=== PATIENT | male | born 1945 | race Caucasian/White ===

== ENCOUNTER → 2017-09-16 | Day surgery (SDC) | payer OTHER ==
[~2017-09-16] MED LIST: IOPAMIDOL (ISOVUE-300) 100 ML BTL ONE; LR 1,000 ML IV ONE; ONDANSETRON 4 MG/2 ML VIAL IVP PRN; OXYCODONE/APAP 5/325 TAB PO PRN; PROPOFOL 200 MG/20 ML VIAL ONE; ROCURONIUM 50 MG/5 ML VIAL ONE; fentaNYL 100 MCG/2 ML INJ ONE
[2017-09-16 12:11] LABS: PLATELET COUNT 275 10^3/uL (150-400)
[2017-09-16 12:22] VITALS: BP 162/80
--- NOTE | 2017-09-16 12:46 | PDANEPAE ---
ANE History of Present Illness h/o CVA ANE Past Medical History - Cardiovascular History Hx Hypertension: Yes Hx Arrhythmias: No Hx Chest Pain: No Hx Coronary Artery / Peripheral Vascular Disease: No Hx CHF / Valvular Disease: No Hx Palpitations: No - Pulmonary History Hx COPD: No Hx Asthma/Reactive Airway Disease: No Hx Recent Upper Respiratory Infection: No Hx Oxygen in Use at Home: No Hx Sleep Apnea: Yes Sleep Apnea Screening Result - Last Documented: Positive - Neurologic History Hx Cerebrovascular Accident: Yes Hx Seizures: No Hx Dementia: Yes - Endocrine History Hx Diabetes: Yes - Renal History Hx Renal Disorders: No - Liver History Hx Hepatic Disorders: No - Neurological & Psychiatric Hx Hx Neurological and Psychiatric Disorders: No - Cancer History Hx Cancer: Yes 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 - Congenital Disorder History Hx 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 - GI History Hx Gastrointestinal Disorders: No - Other Health History Other Health History: Bilat cataract surgery - Chronic Pain History Chronic Pain: No ANE Review of Systems Review of Systems: - Exercise capacity METS (RN): 5 METS ANE Patient History - Allergies Allergies/Adverse Reactions: No Known Allergies Allergy (Unverified 09/10/17 13:32) - Home Medications Home Medications: Atorvastatin Calcium 40 mg PO DAILY 09/10/17 [Last Taken 09/15/17] Lantus 35 units SQ 09/10/17 [Last Taken 09/15/17] Losartan Potassium 50 mg PO DAILY 09/10/17 [Last Taken 09/15/17] Metformin 1000 mg 500 mg PO BID 09/10/17 [Last Taken 09/15/17] Metoprolol Tartrate 25 mg PO BID 09/10/17 [Last Taken 09/15/17] Plavix 75 mg PO DAILY 09/10/17 [Last Taken 09/15/17] - Smoking Hx Smoking Status: Former smoker - Family Anes Hx Family Hx Anesthesia Complications: None known ANE Labs/Vital Signs - Labs Result Diagrams: 09/16/17 11:53 09/16/17 11:53 - Vital Signs Blood Pressure: 162/80 Heart Rate: 57 Respiratory Rate: 16 O2 Sat (%): 92 Height: 177.8 cm Weight: 95.254 kg ANE Physical Exam - Airway Neck exam: FROM Mallampati Score: Class 2 Mouth exam: dentures - Pulmonary Pulmonary: no respiratory distress - Cardiovascular Cardiovascular: regular rate and rhythym - ASA Status ASA Status: III ANE Anesthesia Plan Total IV Anesthesia: Yes
--- NOTE | 2017-09-16 13:27 | PDHPUP ---
History & Physical Update H&P update statement: This history and physical update is based on an assessment of the patient which was completed after admission or registration (within 24 hours), but prior to the surgery/procedure. H&P update: H&P reviewed & patient examined, changes noted H&P changes: no significant change. I reviewed the pertinent history and medications with the patient from note dated 07/13/17. He had previous occipital strokes. He has not had new events since starting on ASA/plavix. He has vertebrobasilar stenosis on CTA. His PMH, FH, SH, allergies, and meds have not changed. PE: AAOx3, VF constricted bilaterally, facial function normal, PERRL. strength full in all limbs, sensation normal
--- NOTE | 2017-09-16 15:02 | POSTANESTH ---
Post Anesthetic Evaluation Cardiovascular Status: Normal, Stable Respiratory Status: Normal, Stable Level of Consciousness/Mental Status: Can Participate in Eval Pain Control: Adequate, Prn Tx Ordered Nausea/Vomiting Control: Adequate, Prn Tx Ordered Complications Possibly Related to Anesthesia: None Noted
--- NOTE | 2017-09-16 15:14 | POSTOPPROG ---
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
== END | disposition home or self-care (01) ==
LOC: FIMAGING 10:41 → EDSTATUS 13:00
PROVIDERS: ATTEND Neurological Surgery
DX: I77.2 Rupture of artery (principal); I65.02 Occlusion and stenosis of left vertebral artery; Z86.73 Personal history of transient ischemic attack (TIA), and cerebral infarction without residual deficits; Z87.891 Personal history of nicotine dependence
CPT/HCPCS: 36222; 36226; C1769; C1894; J1644; J2704; J3010; Q9967